=== PATIENT | male | born 1950 | race Caucasian/White ===

== ENCOUNTER 2018-08-18 16:33 | Emergency (ER) | payer MEDICARE, BC ==
[~2018-08-18] VITALS: Ht 172.7 cm; Wt 65.0 kg
[~2018-08-18 16:33] MED LIST: ACET-2119 PO; AMLO-94 PO; ASPI-1265 PO; ATOR40TA PO; BENZ-49 PO; BRIM5DRO16 EACHEYE; DOCU100C40 PO; FERR325T28 PO; FLUT16SP2 BOTHNARES; GLUC1KIT IM; GUAI473S11 PO; HYDR-4383 PO; INSU100C10 SQ; INSU100V9 SQ; MAGN400O6 PO; METO50TA17 PO; OMEP20CA10 PO; TERA1CAP4 PO; TIMO5DRO32 EACHEYE; ZINO TP
[2018-08-18 17:05] LABS: BASOPHILS % (AUTO) 0.3 % (0-1); EOSINOPHILS # (AUTO) 0.4 X10'3 (0-0.9); EOSINOPHILS % (AUTO) 8.2 % (0-6); HEMATOCRIT 23.9 % (42.0-52.0); HEMOGLOBIN 8.1 g/dl (14.0-17.9); LYMPHOCYTES # (AUTO) 0.5 X10'3 (1.1-4.8); LYMPHOCYTES % (AUTO) 11.6 % (21-51); MEAN CORPUSCULAR HEMOGLOBIN 29.5 PG (27.0-31.0); MEAN CORPUSCULAR HGB CONC 33.8 g/dL (33.0-36.5); MEAN CORPUSCULAR VOLUME 87.1 FL (78-98); MEAN PLATELET VOLUME 7.3 FL (7.4-10.4); MONOCYTES # (AUTO) 0.3 X10'3 (0-0.9); MONOCYTES % (AUTO) 7.1 % (2-12); NEUTROPHILS # (AUTO) 3.3 X10'3 (1.8-7.7); NEUTROPHILS % (AUTO) 72.8 % (42-75); PLATELET COUNT 270 X10'3 (140-440); RED BLOOD COUNT 2.74 X10'6 (4.70-6.10); RED CELL DISTRIBUTION WIDTH 16.5 % (11.5-14.5); WHITE BLOOD COUNT 4.6 X10'3 (4.5-11.0)
[2018-08-18] MEDS ORDERED: OMEP-50 PO (17:10)
[2018-08-18 17:18] LABS: ANION GAP 9 (8-16); BILIRUBIN,TOTAL 0.2 MG/DL (0.1-1.0); BLOOD UREA NITROGEN 49 MG/DL (7-18); BUN/CREATININE RATIO 17.9 (5.4-32.0); CALCIUM 7.7 MG/DL (8.5-10.1); CHLORIDE 102 MMOL/L (99-107); CREATININE 2.73 MG/DL (0.60-1.10); GLUCOSE 276 MG/DL (70-104); POTASSIUM 4.2 MMOL/L (3.5-5.1); SODIUM 136 MMOL/L (135-145); TOTAL CARBON DIOXIDE 24.9 MMOL/L (24-32); TOTAL PROTEIN 5.8 G/DL (6.4-8.2); eGFR 23 ML/MIN
[2018-08-18 17:19] LABS: ALANINE AMINOTRANSFERASE 47 U/L (12-78); ALBUMIN 1.4 G/DL (3.4-5.0); ALBUMIN/GLOBULIN RATIO 0.3 (1.1-1.5); ALKALINE PHOSPHATASE 409 IU/L (46-116); ASPARTATE AMINO TRANSFERASE 58 U/L (10-37)
[2018-08-18] MEDS ORDERED: ALBU2.5V12 NEB (17:26)
[2018-08-18] MEDS ORDERED: LOSA25TA41 PO (17:26)
[2018-08-18] MEDS ORDERED: INSU100C10 SQ (17:26)
[2018-08-18] MEDS ORDERED: TERA2CAP4 PO (17:26)
[2018-08-18] MEDS ORDERED: ATR0.5NEB IH (17:26)
[2018-08-18] MEDS ORDERED: LACT1CAP26 PO (17:26)
[2018-08-18] MEDS ORDERED: FERR325T32 PO (17:26)
[2018-08-18] MEDS ORDERED: BRIM5DRO16 EACHEYE (17:26)
[2018-08-18] MEDS ORDERED: CARCD120C PO (17:26)
[2018-08-18] MEDS ORDERED: FLUT16SP2 BOTHNARES (17:26)
[2018-08-18] MEDS ORDERED: BALS60OI TOP (17:26)
[2018-08-18] MEDS ORDERED: TERA1CAP4 PO (17:26)
[2018-08-18] MEDS ORDERED: LANTUS SQ (17:26)
[2018-08-18] MEDS ORDERED: ATOR40TA PO (17:26)
[2018-08-18] MEDS ORDERED: DOCU-28 PO (17:26)
[2018-08-18] MEDS ORDERED: ASPI-611 PO (17:26)
--- NOTE | 2018-08-18 18:24 | NUR ---
US AND ECHO COMPLETE.
--- NOTE | 2018-08-18 19:10 | NUR ---
REPORT RECEIVED FROM US OF LEFT ARM, NEGATIVE FINDINGS. DR. ARELLANO AWARE. PT AWAITING DISPOSITION. PT WITH NO NEEDS, REPORTS NO PAIN. STABLE VS.
--- NOTE | 2018-08-18 19:56 | NUR ---
gina rubio, emilia, calling for updated. told that pt has had echo and us of left arm and the md anticipates dc'ing back soon. we are still awaiting the final read of the echo report. pt is stable with stable vs. gina # [phone]
--- NOTE | 2018-08-18 20:18 | NUR ---
ACCUCHECK 196, PT IS DC READY .
--- NOTE | 2018-08-18 20:55 | NUR ---
PT DC READY, AWAITING TRANSPORT VIA EMS D/T BILATERAL CHEST TUBES. PT WITH STABLE VS. AND NO NEEDS AT THIS TIME. FOELY EMPTIED 400 CC'S LIGHT YELLOW URINE WITH SEDIMENT
[2018-08-18 20:58] VITALS: BP 146/89
--- NOTE | 2018-08-18 21:13 | NUR ---
dr dotyfs talking with pt about discharge and findings. reports some poss reasons forthe arm swelling: pt is anemic, pt with poor kidney function, pt may have blocked lymph nodes (which can resolve in few days to weeks. reports called back to gina. pt now awaiting [facility] transport.
--- NOTE | 2018-08-18 22:42 | NUR ---
pt sleeping, awaiting transport back to [facility].
--- NOTE | 2018-08-18 23:11 | NUR ---
CALLED [facility] BACK TO GET ETA OF TRANSPORT AT 23:02. WAS ADVISED TRANSPORT WOULD BE HERE SHORTLY 10-20 MINS
--- NOTE | 2018-08-18 23:29 | NUR ---
[facility] here for transport. left chest tube dressing noted to be lifting off, tube remains in place and not migrated. [facility] silk tape[facility]
== END 2018-08-18 23:31 ==
LOC: ER 16:34
DX: R60.0 Localized edema (principal); I11.0 Hypertensive heart disease with heart failure; I50.9 Heart failure, unspecified; E11.9 Type 2 diabetes mellitus without complications; Z79.82 Long term (current) use of aspirin; Z79.4 Long term (current) use of insulin; Z87.01 Personal history of pneumonia (recurrent); Z88.8 Allergy status to other drugs, medicaments and biological substances
CPT/HCPCS: 36415; 80053; 82948; 83880; 85025; 93306; 93971; 99284

== ENCOUNTER 2018-08-21 21:07 | Emergency (ER) | payer MEDICARE, BC ==
[~2018-08-21] VITALS: Ht 172.7 cm; Wt 56.0 kg
[~2018-08-21 21:07] MED LIST changes: +ALBU2.5V12 NEB; +ASPI-611 PO; +ATR0.5NEB IH; +BALS60OI TOP; +CARCD120C PO; +DOCU-28 PO; +FERR325T32 PO; +LACT1CAP26 PO; +LANTUS SQ; +LOSA25TA41 PO; +OMEP-50 PO; +TERA2CAP4 PO
[2018-08-21] MEDS ORDERED: normal saline 1000ML IV soln IV ONE (21:25)
[2018-08-21] MEDS ORDERED: pantoprazole IV 80 MG in normal saline 100ml IV soln 100 ML IV ONE ×4 (21:25)
[2018-08-21] MEDS ORDERED: dextrose 50%-water 50ml dispensing syringe IV STA (21:28)
[2018-08-21] MEDS ORDERED: pantoprazole 40MG/NS 100ML BAG 100 ML IV ONE (21:30)
[2018-08-21] MEDS ORDERED: pantoprazole 40 MG vial IV ONE (21:30)
[2018-08-21 21:44] LABS: BASOPHILS # (AUTO) 0.1 X10'3 (0-0.2); BASOPHILS % (AUTO) 1.2 % (0-1); EOSINOPHILS # (AUTO) 0.3 X10'3 (0-0.9); EOSINOPHILS % (AUTO) 3.8 % (0-6); HEMATOCRIT 24.4 % (42.0-52.0); HEMOGLOBIN 8.1 g/dl (14.0-17.9); LYMPHOCYTES # (AUTO) 0.8 X10'3 (1.1-4.8); LYMPHOCYTES % (AUTO) 9.4 % (21-51); MEAN CORPUSCULAR HEMOGLOBIN 28.8 PG (27.0-31.0); MEAN CORPUSCULAR HGB CONC 33.2 g/dL (33.0-36.5); MEAN CORPUSCULAR VOLUME 86.8 FL (78-98); MEAN PLATELET VOLUME 7.6 FL (7.4-10.4); MONOCYTES # (AUTO) 0.9 X10'3 (0-0.9); MONOCYTES % (AUTO) 10.1 % (2-12); NEUTROPHILS # (AUTO) 6.6 X10'3 (1.8-7.7); NEUTROPHILS % (AUTO) 75.5 % (42-75); PLATELET COUNT 313 X10'3 (140-440); RED CELL DISTRIBUTION WIDTH 16.5 % (11.5-14.5); WHITE BLOOD COUNT 8.7 X10'3 (4.5-11.0)
[2018-08-21 21:51] LABS: ALANINE AMINOTRANSFERASE 60 U/L (12-78); ALBUMIN 1.7 G/DL (3.4-5.0); ALBUMIN/GLOBULIN RATIO 0.4 (1.1-1.5); ALKALINE PHOSPHATASE 369 IU/L (46-116); ANION GAP 12 (8-16); ASPARTATE AMINO TRANSFERASE 62 U/L (10-37); BILIRUBIN,TOTAL 0.3 MG/DL (0.1-1.0); BLOOD UREA NITROGEN 49 MG/DL (7-18); BUN/CREATININE RATIO 17.1 (5.4-32.0); CALCIUM 8.6 MG/DL (8.5-10.1); CHLORIDE 104 MMOL/L (99-107); CREATININE 2.87 MG/DL (0.60-1.10); GLUCOSE 60 MG/DL (70-104); POTASSIUM 3.8 MMOL/L (3.5-5.1); SODIUM 142 MMOL/L (135-145); TOTAL PROTEIN 6.4 G/DL (6.4-8.2); eGFR 22 ML/MIN
[2018-08-21 22:56] VITALS: BP 159/80
--- NOTE | 2018-08-21 23:00 | NUR ---
PER [facility] PT HR ALWAYS 100 TO 120.
--- NOTE | 2018-08-21 23:09 | NUR ---
PT FEELING MUCH BETTER AFTER FLUIDS AND D50W. PT HAD ZERO VOMITUS EPISODES WHILE HERE.
--- NOTE | 2018-08-22 01:19 | NUR ---
DUE TO PATIENTS EXTENDED STAY I GAVE HIM A SANDWHICH AND SOME WATER.
== END 2018-08-22 01:43 ==
LOC: ER 21:07
DX: R11.10 Vomiting, unspecified (principal); K21.9 Gastro-esophageal reflux disease without esophagitis; I11.0 Hypertensive heart disease with heart failure; I50.9 Heart failure, unspecified; E11.9 Type 2 diabetes mellitus without complications; Z88.6 Allergy status to analgesic agent; Z79.82 Long term (current) use of aspirin; Z79.899 Other long term (current) drug therapy; Z79.4 Long term (current) use of insulin; Z79.01 Long term (current) use of anticoagulants
CPT/HCPCS: 36415; 71045; 80053; 82948; 83605; 85025; 87040; 93005; 96374; 96375; 99285; C9113; J7030

== ENCOUNTER 2018-08-23 14:15 | Outpatient (CLI) | payer OTHER | END 2018-08-23 23:59 | disposition home or self-care (01) | LOC: CARD DIAG 14:15 | PROVIDERS: ATTEND Specialist | DX: I34.0 Nonrheumatic mitral (valve) insufficiency (principal); I31.3 Pericardial effusion (noninflammatory); I11.0 Hypertensive heart disease with heart failure; I50.9 Heart failure, unspecified; E10.9 Type 1 diabetes mellitus without complications | CPT/HCPCS: 93308 ==